=== PATIENT | male | born 1960 | race Caucasian/White ===

== ENCOUNTER 2016-05-25 08:04 | Emergency (ER) | payer MEDICAID, OTHER ==
[~2016-05-25] VITALS: Ht 188 cm; Wt 120.0 kg
[2016-05-25 08:13] VITALS: Ht 188 cm; Wt 120.0 kg
[2016-05-25] MEDS ORDERED: KETOROLAC 30 MG INJ IM STA (08:46)
[2016-05-25] MEDS ORDERED: AMOXICILLIN/CLAV 875 MG TAB PO ONE (09:00)
--- NOTE | 2016-05-25 09:01 | ERD ---
ER Documentation Chief Complaint Date/Time DATE: 05/25/16 TIME: 08:58 Chief Complaint needs dental work up, swelling on left face since HPI This is a 55-year-old male presenting to the emergency department for facial swelling and dental pain. Patient states facial swelling started 4 days ago and has gotten more swollen. Patient states he has a root canal scheduled for tomorrow with his dentist. No fevers or chills. no difficulty breathing, shortness of breath or chest pain. No difficulty swallowing or drooling. ROS All systems reviewed and are negative except as per history of present illness. Medications Home Meds Active Scripts Ibuprofen* (Motrin*) 600 Mg Tab, 600 MG PO Q6H Y for PAIN AND OR ELEVATED TEMP, #15 TAB Prov:JADE PEREZ NP 05/25/16 Amoxicillin/Potassium Clav (Amox-Clav 875-125 mg Tablet) 875-125 mg Tab, 1 TAB PO TID for 7 Days, #14 TAB Prov:JADE PEREZ NP 05/25/16 Allergies Allergies: Coded Allergies: No Known Allergy (Unverified , 01/02/14) PMhx/Soc Medical and Surgical Hx: pt denies Surgical Hx Hx Cardiac Disorders: Yes (hypertension; hypercholesterolemia) Hx Miscellaneous Medical Probl: Yes (dm) Hx Alcohol Use: No Hx Substance Use: No Hx Tobacco Use: No Smoking Status: Never smoker Physical Exam Vitals Vital Signs Date Time Temp Pulse Resp B/P Pulse Ox O2 Delivery O2 Flow Rate FiO2 05/25/16 08:13 97.8 90 18 140/94 99 Physical Exam Const: NAD, alert Head: Atraumatic Eyes: Normal Conjunctiva ENT: Normal External Ears, Nose and Mouth. No erythema noted to face or neck. Small amount of facial swelling to left cheek. No orbital swelling. No fluctuance. Neck: Full range of motion..~ No meningismus. No lymphadenopathy. Resp: Clear to auscultation bilaterally. No wheezing, rhonchi or crackles. Cardio: Regular rate and rhythm, no murmurs Abd: Soft, non tender, non distended. Normal bowel sounds Skin: No petechiae or rashes Back: No midline or flank tenderness Ext: No cyanosis, or edema Neur: Awake and alert Psych: Normal Mood and Affect Results 24 hrs Current Medications Medications (Trade) Dose Ordered Sig/Chrissy Route PRN Reason Start Time Stop Time Status Last Admin Dose Admin Ketorolac Tromethamine (Toradol) 30 mg ONCE STAT IM 05/25/16 08:46 05/25/16 08:48 DC 05/25/16 09:02 Amoxicillin/ Clavulanate Potassium (Augmentin) 875 mg ONCE ONCE PO 05/25/16 09:00 05/25/16 09:01 DC 05/25/16 09:16 Procedures/MDM ED COURSE: The patient was stable throughout ED course. I kept the patient and/or family informed of laboratory and diagnostic imaging results throughout the ED course. Augmentin or Toradol given MDM: 55-year-old male presents emergency department for dental pain and left- sided facial swelling 3 days. Patient is scheduled for root canal tomorrow with dentist. No orbital swelling. No signs or symptoms of respiratory distress. No difficulty swallowing or drooling. Patient is swallowing medication and water while in the ED without difficulty. Pain is minimal. Patient given Toradol while in the ED and states pain has reduced and swelling has reduced. Patient also given dose of Augmentin while in the ED. Low suspicion for deep space infection. Patient is appropriate for outpatient management will be given prescription for Augmentin and ibuprofen. Instructed patient to follow-up with dentist as soon as possible at scheduled appointment tomorrow. Return to ED for any high fever , chest pain, difficulty breathing, shortness breath, wheezing, vomiting, diarrhea, abdominal pain or any new or worsening symptoms. Patient verbalizes understanding. All questions answered at discharge. Departure Diagnosis: Primary Impression: Pain, dental Condition: Stable JADE PEREZ NP May 25, 2016 09:01
[2016-05-25] MEDS ORDERED: IBUP-1542 PO (09:42)
[2016-05-25] MEDS ORDERED: AMOX1TAB10 PO (09:42)
== END 2016-05-25 09:54 | disposition home or self-care (01) ==
LOC: FTE 08:04
DX: K08.89 Other specified disorders of teeth and supporting structures (principal); I10 Essential (primary) hypertension; E11.9 Type 2 diabetes mellitus without complications
CPT/HCPCS: 96372; 99284; J1885